=== PATIENT | male | born 1980 | race Caucasian/White ===

== ENCOUNTER 2019-02-07 22:43 | Emergency (ER) | payer BC ==
[2019-02-07] MEDS ORDERED: NA CHLORIDE 0.9% 1,000 ML ONE (23:32)
[2019-02-08 00:25] LABS: Absolute Lymphocytes (CBC) 0.5 K/uL (0.7-4.9); Basophils % 0.5 % (0-1.3); Hematocrit 46.7 % (39.6-49.0); Lymphocytes % 4.3 % (15.3-44.8); MPV 8.8 fL (7.6-11.3); RBC Red Blood Cell Count 5.09 M/uL (4.33-5.43)
[2019-02-08 00:32] LABS: Albumin 4.2 g/dL (3.4-5.0); Bilirubin Direct 0.2 mg/dL (0-0.2); Bilirubin Total 0.9 mg/dL (0.2-1.0); Potassium 3.9 mmol/L (3.5-5.1); Protein, Total 7.3 g/dL (6.4-8.2)
[2019-02-08] MEDS ORDERED: NA CHLORIDE 0.9% 1,000 ML ONE (00:38)
[2019-02-08 01:10] LABS: Blood Morphology Comment NOT SEEN (NOT SEEN); Platelet Estimate ADEQ; Urine White Blood Cell Casts OK
--- NOTE | 2019-02-08 01:31 | ER ---
Nurse's Notes [facility] Name: Mumtaz Vail Age: 38 yrs Sex: Male : 1980 Arrival Date: 02/07/2019 Time: 22:46 Bed 27 Private MD: Diagnosis: Nausea and vomiting;Diarrhea, unspecified;Volume depletion Presentation: 02/07 22:56 Presenting complaint: Patient states: Nausea, vomiting, diarrhea that began suddenly lp1 today about 1700; States being around who was diagnosed with gastroenteritis recently. Transition of care: patient was not received from another setting of care. Onset of symptoms was February 07, 2019. Risk Assessment: Do you want to hurt yourself or someone else? Patient reports no desire to harm self or others. Initial Sepsis Screen: Does the patient meet any 2 criteria? No. Patient's initial sepsis screen is negative. Does the patient have a suspected source of infection? No. Patient's initial sepsis screen is negative. Care prior to arrival: None. 22:56 Method Of Arrival: Ambulatory lp1 22:56 Acuity: MIKE 3 lp1 Historical: - Allergies: 22:58 No Known Allergies; lp1 - Home Meds: 22:58 None [Active]; lp1 - PMHx: 22:58 None; lp1 - PSHx: 22:58 hand surgery; lp1 - Immunization history:: Adult Immunizations up to date, Flu vaccine is not up to date. - Social history:: Smoking status: Patient/guardian denies using tobacco. - Ebola Screening: : No symptoms or risks identified at this time. Screenin:58 Abuse screen: Denies threats or abuse. Denies injuries from another. Nutritional lp1 screening: No deficits noted. Tuberculosis screening: No symptoms or risk factors identified. Fall Risk None identified. Assessment: 23:33 General: Appears in no apparent distress. comfortable, Behavior is calm, cooperative, aj1 appropriate for age. Pain: Complains of pain in back, left hip and right hip. Neuro: Level of Consciousness is awake, alert, obeys commands, Oriented to person, place, time, situation. Cardiovascular: Patient's skin is warm and dry. Respiratory: Airway is patent Respiratory effort is even, unlabored, Respiratory pattern is regular, symmetrical. GI: Abdomen is flat, non-distended, Bowel sounds present X 4 quads. Abd is soft and non tender X 4 quads. Reports diarrhea, nausea, vomiting. : No signs and/or symptoms were reported regarding the genitourinary system. EENT: No signs and/or symptoms were reported regarding the EENT system. Derm: No signs and/or symptoms reported regarding the dermatologic system. Skin is pink, warm \T\ dry. normal. Musculoskeletal: No signs and/or symptoms reported regarding the musculoskeletal system. Circulation, motion, and sensation intact. 02/08 00:33 Reassessment: Patient appears in no apparent distress at this time. No changes from aj1 previously documented assessment. Patient and/or family updated on plan of care and expected duration. Pain level reassessed. Patient is alert, oriented x 3, equal unlabored respirations, skin warm/dry/pink. 01:12 Reassessment: Patient appears in no apparent distress at this time. Patient and/or rv family updated on plan of care and expected duration. Pain level reassessed. Patient is alert, oriented x 3, equal unlabored respirations, skin warm/dry/pink. Patient states feeling better. Patient states symptoms have improved. Vital Signs: 02/07 22:57 BP 130 / 68; Pulse 116; Resp 18; Temp 98.7(O); Pulse Ox 96% on R/A; Weight 108.86 kg lp1 (R); Height 6 ft. 1 in. (185.42 cm); Pain 7/10; 02/08 00:34 BP 107 / 75; Pulse 99; Resp 16; Pulse Ox 96% on R/A; aj1 01:11 BP 108 / 73; Pulse 91; Resp 16; Pulse Ox 97% on R/A; rv 01:39 BP 106 / 73; Pulse 99; Resp 17; Temp 98.7; Pulse Ox 98% on R/A; rv 02/07 22:57 Body Mass Index 31.66 (108.86 kg, 185.42 cm) lp1 ED Course: 02/07 22:46 Patient arrived in ED. cl3 22:57 Triage completed. lp1 22:57 Arm band placed on left wrist. lp1 22:59 Ele Regan FNP-C [facility]. snw 22:59 Vadim Rea MD is Attending Physician. snw 23:03 Mao, Smiley, RN is Primary Nurse. aj1 23:33 Patient has correct armband on for positive identification. Bed in low position. Call aj1 light in reach. 23:33 No provider procedures requiring assistance completed. Initial lab(s) drawn, by me, kinza sent to lab. Inserted saline lock: 20 gauge in right antecubital area, using aseptic technique. Blood collected. 02/08 01:12 Report received from MICHEAL TELLES. rv 01:41 IV discontinued, intact, bleeding controlled, No redness/swelling at site. Pressure rv dressing applied. Administered Medications: 02/07 23:32 Drug: NS 0.9% 1000 ml Route: IV; Rate: 1 bolus; Site: right antecubital; aj1 02/08 01:41 Follow up: IV Status: Completed infusion; IV Intake: 1000ml rv 00:39 Drug: NS 0.9% 1000 ml Route: IV; Rate: 1 bolus; Site: right antecubital; aj1 01:41 Follow up: IV Status: Completed infusion; IV Intake: 1000ml rv Intake: 01:41 IV: 1000ml; Total: 1000ml. rv 01:41 IV: 1000ml; Total: 2000ml. rv Outcome: 01:30 Discharge ordered by MD. snw 01:41 Discharged to home ambulatory, with family. rv 01:41 Condition: good 01:41 Discharge instructions given to patient, Instructed on discharge instructions, follow up and referral plans. medication usage, Demonstrated understanding of instructions, follow-up care, medications, Prescriptions given X 1. 01:41 Patient left the ED. rv Addendum: 02/14/2019 09:04 Addendum: Culture Results: Phone call Attempt #1 left voicemail. emely a5 18:34 Addendum: Culture Results: Prescription called-in to pharmacy of choice. to [facility] in [place] per pt's request. Signatures: Smiley Cavanaugh, RN RN aj1 Ele Regan, LEARNING ANALYST-C LEARNING ANALYST-Csnw Debby Pandya, RN RN aa5 Emilia Delaney, RN RN lp1 Kyree Gerard RN RN rv Roly English cl3
--- NOTE | 2019-02-08 01:32 | EDPHYS ---
Physician Documentation [facility] Name: Mumtaz Vail Age: 38 yrs Sex: Male : 1980 Arrival Date: 02/07/2019 Time: 22:46 Bed 27 Private MD: ED Physician Vadim Rea HPI: 02/08 00:45 This 38 yrs old Male presents to ER via Ambulatory with complaints of snw Nausea/Vomiting/Diarrhea. 00:45 The patient presents to the emergency department with nausea, vomiting, diarrhea, snw abdominal pain. Onset: The symptoms/episode began/occurred suddenly, today. Possible causes: sick contacts, by family, . The symptoms are aggravated by nothing. Associated signs and symptoms: Pertinent positives: abdominal pain, diarrhea, nausea, vomiting. Severity of symptoms: At their worst the symptoms were moderate severe in the emergency department the symptoms are unchanged. The patient has not experienced similar symptoms in the past. The patient has not recently seen a physician. Historical: - Allergies: 02/07 22:58 No Known Allergies; lp1 - Home Meds: 22:58 None [Active]; lp1 - PMHx: 22:58 None; lp1 - PSHx: 22:58 hand surgery; lp1 - Immunization history:: Adult Immunizations up to date, Flu vaccine is not up to date. - Social history:: Smoking status: Patient/guardian denies using tobacco. - Ebola Screening: : No symptoms or risks identified at this time. ROS: 02/08 00:45 Constitutional: Negative for fever, chills, and weight loss, Eyes: Negative for injury, snw pain, redness, and discharge, ENT: Negative for injury, pain, and discharge, Neck: Negative for injury, pain, and swelling, Cardiovascular: Negative for chest pain, palpitations, and edema, Respiratory: Negative for shortness of breath, cough, wheezing, and pleuritic chest pain, Abdomen/GI: Positive for abdominal pain, nausea, vomiting, diarrhea Back: Negative for injury and pain, : Negative for injury, bleeding, discharge, and swelling, MS/Extremity: Negative for injury and deformity, Skin: Negative for injury, rash, and discoloration, Neuro: Negative for headache, weakness, numbness, tingling, and seizure. Exam: 00:44 Constitutional: This is a well developed, well nourished patient who is awake, alert, snw and in no acute distress. Head/Face: Normocephalic, atraumatic. Eyes: Pupils equal round and reactive to light, extra-ocular motions intact. Lids and lashes normal. Conjunctiva and sclera are non-icteric and not injected. Cornea within normal limits. Periorbital areas with no swelling, redness, or edema. Neck: Trachea midline, no thyromegaly or masses palpated, and no cervical lymphadenopathy. Supple, full range of motion without nuchal rigidity, or vertebral point tenderness. No Meningismus. Chest/axilla: Normal chest wall appearance and motion. Nontender with no deformity. No lesions are appreciated. Respiratory: Lungs have equal breath sounds bilaterally, clear to auscultation and percussion. No rales, rhonchi or wheezes noted. No increased work of breathing, no retractions or nasal flaring. Back: No spinal tenderness. No costovertebral tenderness. Full range of motion. Skin: Warm, dry with normal turgor. Normal color with no rashes, no lesions, and no evidence of cellulitis. MS/ Extremity: Pulses equal, no cyanosis. Neurovascular intact. Full, normal range of motion. Neuro: Awake and alert, GCS 15, oriented to person, place, time, and situation. Cranial nerves II-XII grossly intact. Motor strength 5/5 in all extremities. Sensory grossly intact. Cerebellar exam normal. Normal gait. Psych: Awake, alert, with orientation to person, place and time. Behavior, mood, and affect are within normal limits. 00:44 ENT: External ear(s): are unremarkable, Ear canal(s): are normal, TM's: are normal, Nose: is normal, Mouth: is normal, Oral mucosa: dry. 00:44 Cardiovascular: Rate: tachycardic. 00:44 Abdomen/GI: Inspection: abdomen appears normal, Bowel sounds: normal, Palpation: mild abdominal tenderness, in the umbilical area, umbilical tenderness gone post 1 liter NS. Vital Signs: 02/07 22:57 BP 130 / 68; Pulse 116; Resp 18; Temp 98.7(O); Pulse Ox 96% on R/A; Weight 108.86 kg lp1 (R); Height 6 ft. 1 in. (185.42 cm); Pain 7/10; 02/08 00:34 BP 107 / 75; Pulse 99; Resp 16; Pulse Ox 96% on R/A; aj1 01:11 BP 108 / 73; Pulse 91; Resp 16; Pulse Ox 97% on R/A; rv 01:39 BP 106 / 73; Pulse 99; Resp 17; Temp 98.7; Pulse Ox 98% on R/A; rv 02/07 22:57 Body Mass Index 31.66 (108.86 kg, 185.42 cm) lp1 MDM: 02/07 23:09 Patient medically screened. snw 02/08 01:32 Data reviewed: vital signs, nurses notes. Data interpreted: Pulse oximetry: on room air snw is 97 %. Interpretation: normal. Counseling: I had a detailed discussion with the patient and/or guardian regarding: the historical points, exam findings, and any diagnostic results supporting the discharge/admit diagnosis, lab results, the need for outpatient follow up, to return to the emergency department if symptoms worsen or persist or if there are any questions or concerns that arise at home. Special discussion: Based on the patient's Hx, exam, and Dx evaluation, there is no indication for emergent surgery or inpatient Tx. It is understood by the patient/guardian that if the Sx's persist or worsen they need to return immediately for re-evaluation. Based on the history and exam findings, there is no indication for further emergent testing or inpatient evaluation. I discussed with the patient/guardian the need to see the primary care provider for further evaluation of the symptoms. 02/07 23:00 Order name: Basic Metabolic Panel [facility] 02/07 23:00 Order name: CBC with Diff; Complete Time: 01:29 snw 02/07 23:00 Order name: Creatinine for Radiology [facility] 02/07 23:00 Order name: Hepatic Function [facility] 02/07 23:00 Order name: Lipase [facility] 02/07 23:46 Order name: Stool Culture [facility] 02/07 23:46 Order name: CDIFF 02/07 23:46 Order name: Ova [facility] Parasites 02/08 01:11 Order name: CBC Smear Scan; Complete Time: 01:29 EDMS 02/07 23:00 Order name: Labs collected and sent; Complete Time: 00:34 snw Administered Medications: 02/07 23:32 Drug: NS 0.9% 1000 ml Route: IV; Rate: 1 bolus; Site: right antecubital; aj1 02/08 01:41 Follow up: IV Status: Completed infusion; IV Intake: 1000ml rv 00:39 Drug: NS 0.9% 1000 ml Route: IV; Rate: 1 bolus; Site: right antecubital; aj1 01:41 Follow up: IV Status: Completed infusion; IV Intake: 1000ml rv Disposition: 03:34 Co-signature as Attending Physician, Vadim Rea MD. rn Disposition: 02/08/19 01:30 Discharged to Home. Impression: Nausea and vomiting, Diarrhea, unspecified, Volume depletion. - Condition is Stable. - Discharge Instructions: Dehydration, Adult, Diarrhea, Adult, Nausea and Vomiting, Adult, Rehydration, Adult. - Prescriptions for Zofran 4 mg Oral Tablet - take 1 tablet by ORAL route every 12 hours As needed; 20 tablet. - Work release form, Medication Reconciliation Form, Thank You Letter, Antibiotic Education, Prescription Opioid Use form. - Follow up: Private Physician; When: 2 - 3 days; Reason: Recheck today's complaints, Continuance of care, Re-evaluation by your physician. Follow up: Emergency Department; When: As needed; Reason: Worsening of condition. - Problem is new. - Symptoms have improved. Signatures: Dispatcher [employer] EDSmiley Olguin RN RN aj1 Ele Regan, HIGH SCHOOL FOOTBALL COACH-C HIGH SCHOOL FOOTBALL COACH-Csnw Vadim Rea MD MD rn Pena, Laura, RN RN lp1 Kyree Gerard RN RN rv Corrections: (The following items were deleted from the chart) 01:41 01:30 02/08/2019 01:30 Discharged to Home. Impression: Nausea and vomiting; Diarrhea, rv unspecified; Volume depletion. Condition is Stable. Forms are Medication Reconciliation Form, Thank You Letter, Antibiotic Education, Prescription Opioid Use. Follow up: Private Physician; When: 2 - 3 days; Reason: Recheck today's complaints, Continuance of care, Re-evaluation by your physician. Follow up: Emergency Department; When: As needed; Reason: Worsening of condition. Problem is new. Symptoms have improved. snw
[2019-02-08 03:30] VITALS: TEMP 98.7
[2019-02-08 03:34] VITALS: BP 106/73; O2SAT 98
== END 2019-02-08 01:41 | disposition home or self-care (01) ==
LOC: ER 22:43
DX: E86.9 Volume depletion, unspecified (principal); R19.7 Diarrhea, unspecified
CPT/HCPCS: 96361; 87045; 85025; 80048; 36415; 87177; 80076; 87046; 87493; 87209; 83690; 96360; 99284; J7030 ×2